=== PATIENT | female | born 1970 | race Caucasian/White ===

== ENCOUNTER 2016-03-08 14:28 | Outpatient (RCR) | payer MEDICARE, MEDICAID ==
[~2016-03-08 14:28] MED LIST: /ESOM40CA OR; /TIOT18INH INH; ALEVE D PO; ALLE25CA OR; CETI10TA OR; CLON0.5T OR; COLA100C2 OR; HYDR25TA8 OR; LEGATRIN PM; LEGATRIN PM PO; Legatrin; Norco PO; Prestiq PO; TRAZ100T OR; VENTAER IN; XANA1TAB2 OR
== END 2016-03-13 ==
LOC: M PT 14:28
PROVIDERS: ATTEND Physician Assistant
DX: Z51.89 Encounter for other specified aftercare (principal); Z98.890 Other specified postprocedural states
CPT/HCPCS: 97110; 97140; G8984; G8985

== ENCOUNTER 2016-04-04 14:30 | Outpatient (RCR) | payer MEDICARE, MEDICAID | END 2016-04-10 | LOC: M PT 14:30 | PROVIDERS: ATTEND Physician Assistant | DX: Z51.89 Encounter for other specified aftercare (principal); M75.00 Adhesive capsulitis of unspecified shoulder ==

== ENCOUNTER → 2016-06-19 | Outpatient (CLI) | payer MEDICARE, MEDICAID ==
[~2016-06-19] MED LIST changes: +E-Z-GAS II EFFERVESCENT PACKET (SODIUM BICARB./CITRIC ACID/SIMETHICONE) As Ordered ONE; +E-Z-HD 98% w/w 340GM SUSP BTL As Ordered ONE; +E-Z-PAQUE 96% w/w SUSP 176GM BTL As Ordered ONE
--- NOTE | 2016-06-20 06:20 | REP ---
UPPER GI, AIR CONTRAST: The procedure was performed under the direct supervision of Dr. Avilez. The images were reviewed with Dr. Avilez. The head charger film shows no organomegaly or pathological masses. The intestinal gas pattern is nonspecific. Liquid barium and gas producing granules were given in the erect position as well as liquid barium in the prone oblique position in order to perform a double contrast upper GI examination. The oral and pharyngeal stages of deglutition are unremarkable. Esophageal transport is prompt and efficient and there is no esophagitis, stricture, mucosal ring or hiatal hernia. Gastroesophageal reflux is not demonstrated on this examination. The stomach joseph are normally outlined. The rugal folds are smooth and regular. There is no gastritis, neoplasm or ulcer disease. The duodenal joseph are normally outlined. The mucosal folds are smooth and regular. There is no duodenitis, pancreatitis, peptic ulcer disease or neoplasm. The visualized portion of the proximal small bowel appears normal in course and caliber. There is a small duodenal diverticulum seen off the first portion of the duodenum. IMPRESSION: There is a small diverticulum seen off the first portion of the duodenum. Otherwise unremarkable double contrast upper GI examination. 1 minute and 57 seconds of fluoroscopy time was utilized for this procedure. Reviewed by SRIDHAR Enciso 06/20/2016 03:39 PEdited and Signed by Wilson Avilez MD 06/20/2016 04:50 P
== END ==
LOC: M RAD 08:25
PROVIDERS: ATTEND Family Medicine
DX: R10.9 Unspecified abdominal pain (principal)

== ENCOUNTER 2016-09-17 13:53 | Outpatient (CLI) | payer MEDICARE, MEDICAID ==
[~2016-09-17] VITALS: Ht 175.3 cm; Wt 81.6 kg
[~2016-09-17 13:53] MED LIST changes: +ALBU17IN INH; +ALPR2TAB3 PO; +CITA20TA4 PO; -E-Z-GAS II EFFERVESCENT PACKET (SODIUM BICARB./CITRIC ACID/SIMETHICONE) As Ordered ONE; -E-Z-HD 98% w/w 340GM SUSP BTL As Ordered ONE; -E-Z-PAQUE 96% w/w SUSP 176GM BTL As Ordered ONE; +FENT12PA TOP; +LIDOCAINE 2% INJ 100 MG/5 ML SDV (FOR ANES.) As Ordered ONE; +NS 1,000 ML IV ONE; +OMEP40CA2 PO; +PROPOFOL 200 MG/20 ML VIAL As Ordered ONE
[2016-09-17] MEDS ORDERED: TOPA1TAB PO (14:20)
--- NOTE | 2016-09-17 14:44 | ROOR ---
Patient Name: Ava Mazariegos Procedure Date: 09/17/2016 2:25 PM Date of : 1970 Age: 45 Room: [facility] Gender: Female Note Status: Finalized Procedure: Upper Endoscopy + Biopsies Indications: Epigastric abdominal pain, Heartburn Providers: Jayce Pritchard MD Referring MD: MANISH KIRKALND MD Requesting Provider: Medicines: Monitored Anesthesia Care Complications: No immediate complications. Procedure: Pre-Anesthesia Assessment: - The heart rate, respiratory rate, oxygen saturations, blood pressure, adequacy of pulmonary ventilation, and response to care were monitored throughout the procedure. The Endoscope was introduced through the mouth, and advanced to the second part of duodenum. The upper GI endoscopy was accomplished without difficulty. The patient tolerated the procedure well. Findings: The Z-line was regular and was found 40 cm from the incisors. Localized mild inflammation characterized by congestion (edema) and erythema was found in the gastric fundus. Biopsies were taken with a cold forceps for Helicobacter pylori testing. The exam of the duodenum was otherwise normal. Impression: - Z-line regular, 40 cm from the incisors. - Chronic gastritis. Biopsied. - The examination was otherwise normal. Recommendation: - Patient has a contact number available for emergencies. The signs and symptoms of potential delayed complications were discussed with the patient. Return to normal activities tomorrow. Written discharge instructions were provided to the patient. - High fiber diet. - Discharge patient to home. - Continue present medications. - Await pathology results. - Telephone GI clinic for pathology results in 1 week. - Return to referring physician. - The findings and recommendations were discussed with the patient's family. Jayce Pritchard MD Jayce Pritchard MD 09/17/2016 2:44:22 PM This report has been signed electronically. Number of Addenda: 0 Note Initiated On: 09/17/2016 2:25 PM Estimated Blood Loss: Estimated blood loss: none.
[2016-09-17 15:00] VITALS: BP 102/64
== END 2016-09-17 15:11 | disposition home or self-care (01) ==
LOC: M OPP 13:53
PROVIDERS: ATTEND Internal Medicine Gastroenterology
DX: K21.9 Gastro-esophageal reflux disease without esophagitis (principal); K29.50 Unspecified chronic gastritis without bleeding; F41.9 Anxiety disorder, unspecified; F33.9 Major depressive disorder, recurrent, unspecified; J45.909 Unspecified asthma, uncomplicated; F17.210 Nicotine dependence, cigarettes, uncomplicated; Z79.899 Other long term (current) drug therapy; Z88.1 Allergy status to other antibiotic agents; Z88.8 Allergy status to other drugs, medicaments and biological substances

== ENCOUNTER → 2016-11-27 | Outpatient (CLI) | payer MEDICARE, MEDICAID ==
[~2016-11-27] MED LIST changes: -LIDOCAINE 2% INJ 100 MG/5 ML SDV (FOR ANES.) As Ordered ONE; -NS 1,000 ML IV ONE; -PROPOFOL 200 MG/20 ML VIAL As Ordered ONE; +TOPA1TAB PO
--- NOTE | 2016-11-27 10:14 | REP ---
Chest two views HISTORY: Preop Comparison: 08/15/2010 The lungs are clear. The heart is normal in size. The pulmonary vasculature is normal in appearance. The bony structure is intact. IMPRESSION: No acute disease. Signed by Jaylan Wu MD 11/27/2016 10:06 A
[2016-11-27 11:20] LABS: INR 0.9
[2016-11-27 11:31] LABS: CALCIUM OXALATE CRYSTALS SMALL
[2016-11-27 11:47] LABS: ALBUMIN 3.5 GM/DL (3.2-5.2); ALBUMIN/GLOBULIN RATIO 0.85 (1.00-1.93); ALKALINE PHOSPHATASE 120 U/L (45-117); ALT/SGPT 33 U/L (12-78); ANION GAP 7 MEQ/L (8-16); AST/SGOT 19 U/L (15-37); BILIRUBIN,TOTAL 0.3 MG/DL (0.2-1.0); BLOOD UREA NITROGEN 14 MG/DL (7-18); CALCIUM LEVEL 8.3 MG/DL (8.5-10.1); CARBON DIOXIDE LEVEL 25 MEQ/L (21-32); CHLORIDE LEVEL 112 MEQ/L (98-107); CHOLESTEROL LEVEL 177 MG/DL (<200); CREATININE FOR GFR 0.63 MG/DL (0.55-1.02); GLOMERULAR FILTRATION RATE > 60.0 (>58); GLUCOSE, FASTING 93 MG/DL (70-105); POTASSIUM SERUM 4.1 MEQ/L (3.5-5.1); SODIUM LEVEL 144 MEQ/L (136-145); TOTAL PROTEIN 7.6 GM/DL (6.4-8.2); TRIGLYCERIDES LEVEL 281 MG/DL (<150)
--- NOTE | 2016-11-28 16:09 | ECGEPIP ---
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 No prior ECG available for comparison at the time of interpretation. Electronically Signed On 11-28-2016 16:08:58 EDT by Carl Caban
== END ==
LOC: M LAB 09:19
PROVIDERS: ATTEND Family Medicine
DX: Z01.818 Encounter for other preprocedural examination (principal); J44.9 Chronic obstructive pulmonary disease, unspecified; R79.1 Abnormal coagulation profile; E78.5 Hyperlipidemia, unspecified

== ENCOUNTER 2017-07-16 14:18 | Emergency (ER) | payer MEDICARE, MEDICAID | END 2017-07-16 16:59 | disposition left against medical advice (07) | LOC: M ED 16:59 | DX: Z53.21 Procedure and treatment not carried out due to patient leaving prior to being seen by health care provider (principal) | CPT/HCPCS: 99283 ==

== ENCOUNTER → 2017-11-22 | Outpatient (CLI) | payer MEDICARE, MEDICAID | LOC: M RAD 15:09 | DX: M53.3 Sacrococcygeal disorders, not elsewhere classified (principal); M47.816 Spondylosis without myelopathy or radiculopathy, lumbar region; M51.37 Other intervertebral disc degeneration, lumbosacral region; M51.27 Other intervertebral disc displacement, lumbosacral region; M70.60 Trochanteric bursitis, unspecified hip; M46.1 Sacroiliitis, not elsewhere classified; M79.7 Fibromyalgia; M54.16 Radiculopathy, lumbar region; M96.1 Postlaminectomy syndrome, not elsewhere classified | CPT/HCPCS: 72148 ==

== ENCOUNTER → 2018-01-22 | Outpatient (CLI) | payer MEDICARE, MEDICAID | LOC: M RAD 14:19 | DX: R06.00 Dyspnea, unspecified (principal) | CPT/HCPCS: 71046 ==

== ENCOUNTER 2018-06-16 17:54 | Observation (INO) | payer MEDICARE, MEDICAID ==
[~2018-06-16] VITALS: Ht 175.3 cm; Wt 88.2 kg
[~2018-06-16 17:54] MED LIST changes: -/ESOM40CA OR; -/TIOT18INH INH; -CITA20TA4 PO; +CITA20TA6 PO; +FENT12DI12 TOP; -FENT12PA TOP; +NEXI1CAP3 OR; +SPIR1CAP INH
[2018-06-16] MEDS ORDERED: TIZA4TAB4 PO (18:29)
[2018-06-16] MEDS ORDERED: ALBUTEROL SULFATE 2.5 MG/0.5 ML INH NEB SOLN INH ONE (18:30)
[2018-06-16] MEDS ORDERED: IPRATROPIUM 0.5MG/ALBUTEROL 2.5MG INH SOL UD 3ML (DUONEB)(J7620) NEB ONE (18:30)
[2018-06-16] MEDS ORDERED: ACETAMINOPHEN TAB 650MG DOSE (2X325MG) PO ONE (18:30)
[2018-06-16] MEDS ORDERED: dexameTHASONE 20 MG/5 ML VIAL (J1100) IV ONE (18:30)
[2018-06-16 18:37] LABS: VENOUS BASE EXCESS 0.2 (-2.0-2.0); VENOUS HCO3 21.8 MEQ/L (23.0-27.0); VENOUS O2 SATURATION 96.9 % (60.0-80.0); VENOUS PARTIAL PRESSURE CO2 28.7 mmHg (38.0-50.0); VENOUS PARTIAL PRESSURE O2 76.6 mmHg (30.0-50.0); VENOUS PH 7.498 UNITS (7.330-7.430); VENOUS STANDARD HCO3 24.7 MEQ/L; VENOUS TOTAL CO2 22.7 MEQ/L (24.0-28.0)
[2018-06-16 18:38] LABS: BASO % 0.4 % (0.0-1.0); EOS % 0.1 % (0.0-3.0); HEMOGLOBIN 17.5 g/dl (12.0-15.5); LYMPH # 1.6 10^3/uL (1.5-4.5); LYMPH % 18.8 % (24.0-44.0); MEAN CORPUSCULAR HEMOGLOBIN 31.5 pg (27.0-33.0); MEAN CORPUSCULAR VOLUME 90.1 fl (80.0-96.0); MONO # 0.4 10^3/uL (0.0-0.8); MONO % 4.4 % (0.0-5.0); NEUTROPHILS # 6.4 10^3/uL (1.8-7.7); NEUTROPHILS % 76.1 % (36.0-66.0); PLATELET COUNT, AUTOMATED 119 10^3/uL (150-450); RED BLOOD COUNT 5.55 10^6/uL (4.00-5.40); WHITE BLOOD COUNT 8.4 10^3/uL (4.0-10.0)
[2018-06-16 18:48] LABS: INR 1.03; PROTHROMBIN TIME 13.6 SECONDS (12.1-14.4)
[2018-06-16 19:07] LABS: INFLUENZA A AMPLIFICATION NEGATIVE (NEGATIVE); INFLUENZA B AMPLIFICATION NEGATIVE (NEGATIVE)
[2018-06-16 19:12] LABS: ALBUMIN 3.7 GM/DL (3.2-5.2); ALT/SGPT 54 U/L (12-78); BILIRUBIN,DIRECT 0.2 MG/DL (0.0-0.2); BILIRUBIN,TOTAL 0.7 MG/DL (0.2-1.0); BLOOD UREA NITROGEN 9 MG/DL (7-18); CALCIUM LEVEL 8.4 MG/DL (8.5-10.1); CARBON DIOXIDE LEVEL 22 MEQ/L (21-32); CHLORIDE LEVEL 108 MEQ/L (98-107); CK-MB VALUE MASS < 1.0 NG/ML (<3.6); CPK CREATINE PHOSPHOKINASE 32 U/L (26-192); CREATININE FOR GFR 0.61 MG/DL (0.55-1.30); GLOMERULAR FILTRATION RATE > 60.0 (>58); GLUCOSE, FASTING 102 MG/DL (70-100); MB/CK RELATIVE INDEX 3.12 (< OR =4); NT-PRO BNP 81 PG/ML (<125); POTASSIUM SERUM 3.2 MEQ/L (3.5-5.1); SODIUM LEVEL 141 MEQ/L (136-145); TOTAL PROTEIN 7.7 GM/DL (6.4-8.2); TROPONIN I < 0.02 NG/ML (< 0.10)
--- NOTE | 2018-06-16 19:19 | REP ---
REASON: Dyspnea. COMPARISON: Two view exam of 01/22/2018. FINDINGS: The technique utilized in obtaining the radiograph has magnified the cardiac silhouette and accentuated the interstitial markings. The superior mediastinal structures are midline. The cardiac silhouette is unremarkable in size, shape, and position. The diaphragmatic surfaces of the lungs are regular, and the costophrenic angles are clear. The pulmonary mock are clear. The imaged osseous structures are intact. IMPRESSION: There is no acute cardiopulmonary disease. Electronically Signed by Parminder Canchola DO 06/16/2018 07:23 P
[2018-06-16] MEDS ORDERED: POTASSIUM CHLORIDE 10 MEQ SR TABLET PO ONE ×2 (20:00→21:00)
[2018-06-16] MEDS ORDERED: VENTAER INH (20:12)
[2018-06-16] MEDS ORDERED: CELE40TA PO (20:12)
[2018-06-16] MEDS ORDERED: DURA50DI2 TD (20:12)
[2018-06-16] MEDS ORDERED: TOPI100T9 PO (20:12)
[2018-06-16] MEDS ORDERED: HYDR-4517 PO (20:14)
[2018-06-16] MEDS ORDERED: ROPI1TAB PO (20:14)
[2018-06-16] MEDS ORDERED: MELA5CAP2 PO (20:14)
[2018-06-16] MEDS ORDERED: FENTANYL REMOVAL DOCUMENTATION MISC XX SCH (20:45)
[2018-06-16] MEDS ORDERED: AZITHROMYCIN 250 MG TAB PO ONE (20:45)
--- NOTE | 2018-06-16 21:09 | HPEPDOC ---
General Date of Admission Attending Physician: ADAM KIRK MD Chief Complaint The patient is a 47-year-old female admitted with a reason for visit of Diff Breathing. Source: Patient Exam Limitations: Clinical conditions Timing/Duration: Week(s) (3) Severity: Severe Associated Symptoms: Chest Pain, Cough, Fever, Chills, Loss of appetite, Nausea, Shortness of breath, Syncope, Weakness History of Present Illness Patient is a 47-year-old female, past medical history significant for COPD, heavy nicotine dependence, presenting to the emergency room after a syncopal episode which was unwitnessed, with complaints of chest pain and shortness of breath. Patient reports she has had a cough with shortness of breath and weakness for about 3 weeks now. She also had associated chest pain with symptoms. She decided to present to the emergency room today after syncopal episode. Patient states episode was unwitnessed. On recovery, she drove herself to the emergency room. On presentation, patient had a fever of 101.2, chest x-ray was negative for acute cardiopulmonary process. Tests for influenza was negative, cardiac biomarkers also were negative. She was treated with a dose of dexamethasone and placed on supplemental oxygen. On assessment, she still had marked discomfort with coughing, chest pain, shortness of breath. Home Medications Scheduled Alprazolam (Alprazolam) 2 Mg Tab, 2 MG PO QID, (Reported) Citalopram Hydrobromide (Celexa) 40 Mg Tablet, 20 MG PO DAILY, (Reported) Fentanyl (Duragesic) 50 Mcg Patch.td72, 50 MCG TD Q72H, (Reported) USUALLY APPLIES TO BACK/SHOULDERS Ropinirole HCl (Ropinirole HCl) 1 Mg Tablet, 1 MG PO QHS, (Reported) Topiramate (Topiramate) 100 Mg Tablet, 100 MG PO BID, (Reported) Scheduled PRN Albuterol Sulfate (Ventolin Hfa) 18 Gm Hfa.aer.ad, 2 PUFF INH Q4H PRN for SHORTNESS OF BREATH, (Reported) Hydrocodone/Acetaminophen (Hydrocodone-Acetamin 10-325 mg) 1 Each Tablet, 1 TAB PO BID PRN for PAIN, (Reported) FILLED AT PHARMACY. PATIENT HAS NOT STARTED YET. Melatonin (Melatonin) 5 Mg Capsule, 5 MG PO QHS PRN for SLEEP, (Reported) Tizanidine HCl (Tizanidine HCl) 4 Mg Tablet, 4 MG PO Q6H PRN for PAIN, (Reported) Allergies Coded Allergies: tapentadol (Verified Allergy, Severe, SHORTNESS OF BREATH, 06/16/18) Corticosteroids (Glucocorticoids) (Verified Adverse Reaction, Intermediate, IMPAIRED IMMUNE SYSTEM, 06/16/18) erythromycin base (Verified Adverse Reaction, Intermediate, NAUSEA, 06/16/18) Past Medical History Medical History COPD Asthma Attending dependent Surgical History Back surgery Rotator cuff repair Tubal ligation Family History Father: Lung cancer, diabetes mellitus, myocardial infarction at 50 Sister: Lung cancer Social History Smokes a pack of cigarettes per day, denies alcohol and polysubstance abuse A-FIB/CHADSVASC A-FIB History Current/History of A-Fib/PAF?: No Current Oral Anticoagulant The: No Review of Systems Other systems A limited review of systems was completed due to patient's clinical discomfort, negative except as detailed above. Physical Examination Other physical findings GENERAL: in mild distress SKIN : Warm, dry intact HEENT: Atraumatic, normocephalic, PERRL, moist mucous membrane CV: Regular rate and rhythm, tachycardic, S1S2, no JVD, no edema, distal pulses + and palpable RESP: coarse inspiratory wheezes in all lung mock, cough, , no accessory muscle use noted ABDOMEN: BS+ non distended non tender MS: no joint deformities NEURO: Alert and oriented x 3, CN2-12 grossly intact PSYCH: no anxiety or agitation, appropriate mood and affect. Vital Signs Vital Signs Date Time Temp Pulse Resp B/P (MAP) Pulse Ox O2 Delivery O2 Flow Rate FiO2 06/16/18 20:30 97 24 127/73 (91) 95 Nasal Cannula 2.0 06/16/18 20:13 100.5 Laboratory Data Labs 24H Laboratory Tests 2 06/16/18 18:17: Lactic Acid Level 1.2 06/16/18 18:18: Immature Granulocyte % (Auto) 0.2, White Blood Count 8.4, Red Blood Count 5.55H, Hemoglobin 17.5H, Hematocrit 50.0H, Mean Corpuscular Volume 90.1, Mean Corpuscular Hemoglobin 31.5, Mean Corpuscular Hemoglobin Concent 35.0, Red Cell Distribution Width 12.5, Platelet Count 119L, Neutrophils (%) (Auto) 76.1H, Lymphocytes (%) (Auto) 18.8L, Monocytes (%) (Auto) 4.4, Eosinophils (%) (Auto) 0.1, Basophils (%) (Auto) 0.4, Neutrophils # (Auto) 6.4, Lymphocytes # (Auto) 1.6, Monocytes # (Auto) 0.4, Eosinophils # (Auto) 0.0, Basophils # (Auto) 0.0, Nucleated Red Blood Cells % (auto) 0.0, Prothrombin Time 13.6, Prothromb Time International Ratio 1.03, Blood Gas Bicarbonate Standard 24.7, Venous Blood pH 7.498H, Venous Blood Partial Pressure CO2 28.7L, Venous Blood Partial Pressure O2 76.6H, Venous Blood Total Carbon Dioxide 22.7L, Venous Blood HCO3 21.8L, Venous Blood Oxygen Saturation 96.9H, Venous Blood Base Excess 0.2, Anion Gap 11, Glomerular Filtration Rate > 60.0, Calcium Level 8.4L, Aspartate Amino Transf (AST/SGOT) 23, Alanine Aminotransferase (ALT/SGPT) 54, Alkaline Phosphatase 103, Total Bilirubin 0.7, Direct Bilirubin 0.2, Total Creatine Kinase 32, Creatine Kinase MB < 1.0, Creatine Kinase MB Relative Index 3.12, Troponin I < 0.02, JP-Obt-T-Type Natriuretic Peptide 81, Total Protein 7.7, Albumin 3.7, Albumin/Globulin Ratio 0.93L, Thyroid Stimulating Hormone (TSH) 1.210, Influenza Type A (RT-PCR) NEGATIVE, Influenza Type B (RT-PCR) NEGATIVE CBC/BMP Laboratory Tests 06/16/18 18:18 Red Blood Count 5.55 H, Mean Corpuscular Volume 90.1, Mean Corpuscular Hemoglobin 31.5, Mean Corpuscular Hemoglobin Concent 35.0, Red Cell Distribution Width 12.5, Neutrophils (%) (Auto) 76.1 H, Lymphocytes (%) (Auto) 18.8 L, Monocytes (%) (Auto) 4.4, Eosinophils (%) (Auto) 0.1, Basophils (%) (Auto) 0.4, Neutrophils # (Auto) 6.4, Lymphocytes # (Auto) 1.6, Monocytes # (Auto) 0.4, Eosinophils # (Auto) 0.0, Basophils # (Auto) 0.0 Microbiology Microbiology 06/16/18 Blood Culture, Received Pending 06/16/18 Blood Culture, Received Pending Assessment/Plan Acute exacerbation COPD -Presenting with fever, shortness of breath, syncope -Start patient on antibiotic therapy with azithromycin -.Scheduled routine bronchodilator therapy -Patient was given a dose of dexamethasone in the emergency room -She had no adverse effects -Continue steroid therapy with supplemental oxygen to keep saturation greater than 90% -Antipyretics as needed and for temp greater than 100.4 Acute bronchitis -Antitussives as needed -Treatment of underlying infectious process -Respiratory support as needed with monitoring of oxygen to keep greater than 90% Chest Pain -Acute myonecrosis has been ruled out -Patient, however, has strong family history with myocardial infarction in in father at the age of 50 -She also has personal risk factors including heavy nicotine dependent -Nuclear stress test when underlying acute respiratory issues are resolved Syncope -Patient is ruled out for acute myonecrosis with negative cardiac biomarkers -2-D echocardiogram to evaluate ejection fraction, rule out regional wall motion abnormalities -Telemetry monitored bed to exclude any underlying arrhythmia Nicotine dependent -Patient has been counseled about quitting -Continue other therapeutic changes Hypokalemia -Replete and monitor to keep greater than 4 DVT prophylaxis -Proton pump inhibitor Plan / VTE VTE Prophylaxis Ordered?: Yes DARION MCCRARY June 16, 2018 21:09
[2018-06-16] MEDS: rOPINIRole 1MG TAB PO SCH (22:08)
--- NOTE | 2018-06-16 22:17 | ECGEPIP ---
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
[2018-06-16 22:40] VITALS: BP 120/66
[2018-06-16] MEDS: TOPIRAMATE (TopAMAX) 100 MG TAB PO SCH (23:22)
[2018-06-16] MEDS: ENOXAPARIN 40 MG/0.4 ML SYRINGE (J1650) SC SCH (23:23)
[2018-06-16] MEDS: ALPRAZolam 0.5 MG TAB PO SCH (23:23)
[2018-06-16] MEDS: methylPREDNISolone INJ 125 MG/2 ML VIAL (J2930) IV SCH (23:48)
[2018-06-16] MEDS: IPRATROPIUM 0.5MG/ALBUTEROL 2.5MG INH SOL UD 3ML (DUONEB)(J7620) NEB SCH (23:48)
[2018-06-17] MEDS: methylPREDNISolone INJ 125 MG/2 ML VIAL (J2930) IV SCH ×3 (05:55→17:38)
[2018-06-17 06:00] VITALS: BP 114/67
[2018-06-17] MEDS ORDERED: fentaNYL 50 MCG/HR PATCH TD SCH (06:00)
[2018-06-17] MEDS: IPRATROPIUM 0.5MG/ALBUTEROL 2.5MG INH SOL UD 3ML (DUONEB)(J7620) NEB SCH ×4 (07:33→19:53)
[2018-06-17] MEDS: TOPIRAMATE (TopAMAX) 100 MG TAB PO SCH ×2 (08:17→21:56)
[2018-06-17] MEDS: ALPRAZolam 0.5 MG TAB PO SCH ×4 (08:17→21:56)
[2018-06-17] MEDS: PANTOPRAZOLE 40MG TAB (PROTONIX) PO SCH (08:17)
[2018-06-17] MEDS: CitaloPRAM (CeleXA) 20 MG TAB PO SCH (08:17)
[2018-06-17] MEDS: ACETAMINOPHEN TAB 650MG DOSE (2X325MG) PO PRN (08:18)
[2018-06-17 09:08] LABS: HEMATOCRIT 49.3 % (36.0-47.0); MEAN CORPUSCULAR HEMOGLOBIN 31.6 pg (27.0-33.0); MEAN CORPUSCULAR HGB CONC 34.5 g/dl (32.0-36.5); MEAN CORPUSCULAR VOLUME 91.6 fl (80.0-96.0); PLATELET COUNT, AUTOMATED 126 10^3/uL (150-450); RED BLOOD COUNT 5.38 10^6/uL (4.00-5.40); WHITE BLOOD COUNT 5.1 10^3/uL (4.0-10.0)
[2018-06-17 09:34] LABS: BLOOD UREA NITROGEN 14 MG/DL (7-18); CALCIUM LEVEL 9.1 MG/DL (8.5-10.1); CARBON DIOXIDE LEVEL 23 MEQ/L (21-32); CHLORIDE LEVEL 109 MEQ/L (98-107); CREATININE FOR GFR 0.68 MG/DL (0.55-1.30); GLOMERULAR FILTRATION RATE > 60.0 (>58); GLUCOSE, FASTING 208 MG/DL (70-100); POTASSIUM SERUM 3.6 MEQ/L (3.5-5.1); SODIUM LEVEL 139 MEQ/L (136-145)
--- NOTE | 2018-06-17 13:40 | IPNPDOC ---
Subjective Date Seen The patient was seen on 06/17/18. Subjective Chief Complaint/HPI still has SOB but slightly getting better General: Denies: ROS Unobtainable, Chills, Night Sweats, Fatigue, Malaise, Normal Appetite, Other Symptoms Constitutional: Denies: Chills, Fever, Malaise, Night Sweats, Weakness, Fatigue, Weight Loss, Lethargy, Other Eyes: Denies: Pain, Vision change, Conjunctivae inflammation, Eyelid inflammation, Redness, Other ENT: Denies: Head Aches, Ear Pain, Dysphagia, Sinus Congestion, Post Nasal Drip, Sore Throat, Epistaxis, Other Symptoms Skin: Denies: Rash, Lesions, Jaundice, Bruising, Itching, Dry, Breakdown, Nail Changes, Other Pulmonary: Reports: Dyspnea, Cough Cardiovascular: Denies: Chest Pain, Palpitations, Orthopnea, Paroxysmal Noc. Dyspnea, Edema, Lt Headedness, Other Symptoms Gastrointestinal: Denies: Nausea, Vomiting, Abdominal Pain, Diarrhea, Constipation, Melena, Hematochezia, Other Symptoms Genitourinary: Denies: Dysuria, Frequency, Incontinence, Hematuria, Retention, Other Symptoms Hematologic: Denies: Bruising, Bleeding Excessively, Petecchia, Purpura, Enlarged Lymph Nodes, Other Hematologic Endocrine: Denies: Polydipsia, Polyphagia, Polyuria, Heat Intolerance, Cold Intolerance, Other Endocrine Sx Musculoskeletal: Denies: Neck Pain, Back Pain, Shoulder Pain, Arm Pain, Hand Pain, Leg Pain, Foot Pain, Joint Pain, Muscle Pain, Spasms, Other Symptoms Neurological: Denies: Weakness, Numbness, Incoordination, Change in speech, Confusion, Seizures, Other Symptoms Psych: Denies: Mood Normal, Anxiety, Depression, Memory Issues, Thoughts of Self Harm, Anger, Thoughts of Harming Other, Other Psych Objective Physical Examination General Exam: Negative: Alert, Cooperative, No Acute Distress, Mild Distress, Moderate Distress, Severe Distress, Other Eye Exam: Negative: PERRLA, Conjunctiva & lids normal, EOMI, Sclera icteric, Ptosis, Other Eye Symptoms ENT Exam: Negative: Atraumatic, Mucous membr. moist/pink, Pharynx Normal, Tongue Midline, Pharyngeal Edema, Nares Patent, Tympanic Membranes Normal, Ext Auditory Canal Nml, Pinna Normal, Other ENT Neck Exam: Negative: Supple, JVD, thyromegaly, +2 carotid pulse wo bruit, Lymphadenopathy, Other Chest Exam: Positive: Wheezing, Diminished Heart Exam: Negative: Rate Normal, Tachycardic, Bradycardic, Regular Rhythm, Irregular Rhythm, Normal S1, Normal S2, Gallops, Murmurs, Rubs, Other Telemetry: Negative: No significant arrhythmia, Sinus, Atrial fibrillation, Tachycardia, Bradycardia, AV Block, Pause, SV Tach, PVCs, PACs, Asystole, Other Telemetry: Abdomen Exam: Negative: Normal bowel sounds, BS Hyperactive, BS Hypoactive, Soft, Tenderness, Hepatospenomegaly, Mass, Hernia, Other Female Exam: Negative: Nl Ext Genitalia, Normal Cervical Exam, Lesions, Discharge, Odor, Tenderness, Nl Rectal Sphincter Tone Extremity Exam: Negative: Clubbing, Cyanosis, Edema, Normal pulses, Tenderness, Swelling, Other Skin Exam: Negative: Nl turgor and temperature, Rash, Breakdown, Lesion, Pruritus, Other skin issue Neuro Exam: Negative: Normal Gait, Normal Speech, Strength at 5/5 X4 ext, Normal Tone, Sensation Intact, Cranial Nerves 3-12 NL, Reflexes 2+, Other Psych Exam: Negative: Mental status NL, Mood NL, Anxiety, Memory Intact, Oriented x 3, Other A-FIB/CHADSVASC A-FIB History Current/History of A-Fib/PAF?: No Assessment /Plan Problems (1) COPD (chronic obstructive pulmonary disease) with acute bronchitis Status: Acute Response to Treatment: Worse Problem Specific Plan: Monitor Clinically Problem Text: Patient is still hesitant to increase exacerbation of COPD Will change IV to by mouth prednisone to IV Solu-Medrol for better control Continue nebulizer treatment as ordered Extensive counseling was done as patient possibly has CHRISTIAN and needs to follow up with her primary care physician for sleep apnea test Will give a trial of CPAP of 12. Tonight Continue all present meds (2) Obesity Status: Chronic Response to Treatment: Stable Problem Text: Dietary and exercise counseling done Salt other comorbidities associated with with the extreme obesity were explained to her and she understands very well (3) CHRISTIAN (obstructive sleep apnea) Status: Chronic Response to Treatment: Stable Discussed With: Patient Problem Text: Will give a trial of CPAP, but ultimately she needs to see her primary care physician and get the sleep apnea testing done before she gets her CPAP from her insurance company Plan/VTE VTE Prophylaxis Ordered?: Yes VS, I&O[facility] Vital Signs/I&O Vital Signs Date Time Temp Pulse Resp B/P (MAP) Pulse Ox O2 Delivery O2 Flow Rate FiO2 06/17/18 09:00 2.0 06/17/18 06:38 20 94 06/17/18 06:00 97.0 71 114/67 (83) 06/16/18 22:25 Room Air I&O- Last 24 Hours up to 6 AM 06/17/18 06:00 Intake Total 240 ml Output Total 200 ml Balance 40 ml Laboratory Data 24H LABS Laboratory Tests 2 06/16/18 18:17: Lactic Acid Level 1.2 06/16/18 18:18: Immature Granulocyte % (Auto) 0.2, White Blood Count 8.4, Red Blood Count 5.55H, Hemoglobin 17.5H, Hematocrit 50.0H, Mean Corpuscular Volume 90.1, Mean Corpuscular Hemoglobin 31.5, Mean Corpuscular Hemoglobin Concent 35.0, Red Cell Distribution Width 12.5, Platelet Count 119L, Neutrophils (%) (Auto) 76.1H, Lymphocytes (%) (Auto) 18.8L, Monocytes (%) (Auto) 4.4, Eosinophils (%) (Auto) 0.1, Basophils (%) (Auto) 0.4, Neutrophils # (Auto) 6.4, Lymphocytes # (Auto) 1.6, Monocytes # (Auto) 0.4, Eosinophils # (Auto) 0.0, Basophils # (Auto) 0.0, Nucleated Red Blood Cells % (auto) 0.0, Prothrombin Time 13.6, Prothromb Time International Ratio 1.03, Blood Gas Bicarbonate Standard 24.7, Venous Blood pH 7.498H, Venous Blood Partial Pressure CO2 28.7L, Venous Blood Partial Pressure O2 76.6H, Venous Blood Total Carbon Dioxide 22.7L, Venous Blood HCO3 21.8L, Venous Blood Oxygen Saturation 96.9H, Venous Blood Base Excess 0.2, Anion Gap 11, Glomerular Filtration Rate > 60.0, Calcium Level 8.4L, Aspartate Amino Transf (AST/SGOT) 23, Alanine Aminotransferase (ALT/SGPT) 54, Alkaline Phosphatase 103, Total Bilirubin 0.7, Direct Bilirubin 0.2, Total Creatine Kinase 32, Creatine Kinase MB < 1.0, Creatine Kinase MB Relative Index 3.12, Troponin I < 0.02, HS-Zfd-A-Type Natriuretic Peptide 81, Total Protein 7.7, Albumin 3.7, Albumin/Globulin Ratio 0.93L, Thyroid Stimulating Hormone (TSH) 1.210, Influenza Type A (RT-PCR) NEGATIVE, Influenza Type B (RT-PCR) NEGATIVE 06/17/18 08:34: Nucleated Red Blood Cells % (auto) 0.0, Anion Gap 7L, Glomerular Filtration Rate > 60.0, Calcium Level 9.1, Blood Urea Nitrogen 14#, Creatinine 0.68, Sodium Level 139, Potassium Level 3.6, Chloride Level 109H, Carbon Dioxide Level 23 CBC/BMP Laboratory Tests 06/16/18 18:18 Red Blood Count 5.55 H, Mean Corpuscular Volume 90.1, Mean Corpuscular Hemoglobin 31.5, Mean Corpuscular Hemoglobin Concent 35.0, Red Cell Distribution Width 12.5, Neutrophils (%) (Auto) 76.1 H, Lymphocytes (%) (Auto) 18.8 L, Monocytes (%) (Auto) 4.4, Eosinophils (%) (Auto) 0.1, Basophils (%) (Auto) 0.4, Neutrophils # (Auto) 6.4, Lymphocytes # (Auto) 1.6, Monocytes # (Auto) 0.4, Eosinophils # (Auto) 0.0, Basophils # (Auto) 0.0 06/17/18 08:34 Red Blood Count 5.38, Mean Corpuscular Volume 91.6, Mean Corpuscular Hemoglobin 31.6, Mean Corpuscular Hemoglobin Concent 34.5, Red Cell Distribution Width 12.6, Calcium Level 9.1 Microbiology Microbiology 06/16/18 Blood Culture, Received Pending 06/16/18 Blood Culture, Received Pending JANA WAKEFIELD MD June 17, 2018 13:40
[2018-06-17 14:00] VITALS: BP 120/70
[2018-06-17] MEDS ORDERED: AZITHROMYCIN 250 MG TAB PO ONE (20:45)
[2018-06-17] MEDS: rOPINIRole 1MG TAB PO SCH (21:56)
[2018-06-17 22:00] VITALS: BP 132/79
[2018-06-17] MEDS ORDERED: guaiFENesin SYRUP 200 MG/10 ML UDC PO ONE (23:00)
[2018-06-17] MEDS ORDERED: METAMUCIL (PSYLLIUM) PACKET PO PRN (23:30)
[2018-06-18] MEDS: ENOXAPARIN 40 MG/0.4 ML SYRINGE (J1650) SC SCH ×2 (00:10→22:18)
[2018-06-18] MEDS: methylPREDNISolone INJ 125 MG/2 ML VIAL (J2930) IV SCH ×4 (00:10→17:13)
[2018-06-18] MEDS: MOM 30ML SUSPENSION UDC PO PRN (00:11)
[2018-06-18] MEDS: ACETAMINOPHEN TAB 650MG DOSE (2X325MG) PO PRN ×2 (00:11→22:19)
[2018-06-18 06:00] VITALS: BP 106/59
--- NOTE | 2018-06-18 07:51 | ECHO ---
DATE OF STUDY: 06/17/2018 REFERRING PROVIDER: ALVINA Beltran INDICATION: Syncope. HEIGHT: 178 cm. WEIGHT: 88 kg. DIMENSIONS: IVS: 0.9 LV: 4.6 LVPW: 1.1 LA: 3.2 Aorta: 2.8 IVC: 2.4 Mitral E wave velocity: 105 A wave: 108 E prime septal: 8.1 E prime lateral: 8.3 FINDINGS: The study is of good technical quality. The patient is in sinus rhythm. Left ventricle is normal size and normal systolic function, estimated left ventricular ejection fraction (LVEF) 65-70%. No segmental wall motion abnormalities are noted. Right ventricle also appears normal size and systolic function. Both atria appear normal. Aortic, mitral and tricuspid valves appear normal. Pulmonic valve was not well seen. No pericardial effusion is noted. Inferior vena cava is dilated and there is minimal appreciable collapse with respiration indicative of high central venous pressure. Aortic root is normal. Aortic arch and abdominal aorta also appear grossly normal even though visualization was somewhat limited. Doppler interrogation of aortic valve reveals no stenosis or insufficiency. There is trace mitral insufficiency. Tricuspid valve is functionally competent. Mitral inflow pattern and tissue Doppler imaging of mitral annulus reveal likely grade 1 diastolic dysfunction. CONCLUSIONS: 1. Study is of good technical quality. 2. Normal LV size and systolic function, grade 1 diastolic dysfunction. 3. No significant valvular disease. 4. Suggestive of high central venous pressure, but unable to determine pulmonary artery pressure. Right ventricle though does not appear dilated or hypokinetic. COMMENT: Subacute bacterial endocarditis (SBE) prophylaxis is not recommended. The study does not provide obvious explanation for syncopal event.
[2018-06-18] MEDS: IPRATROPIUM 0.5MG/ALBUTEROL 2.5MG INH SOL UD 3ML (DUONEB)(J7620) NEB SCH ×4 (08:00→19:47)
[2018-06-18] MEDS: PANTOPRAZOLE 40MG TAB (PROTONIX) PO SCH (09:00)
[2018-06-18] MEDS: CitaloPRAM (CeleXA) 20 MG TAB PO SCH (09:10)
[2018-06-18] MEDS: ALPRAZolam 0.5 MG TAB PO SCH ×4 (09:10→22:18)
[2018-06-18] MEDS: TOPIRAMATE (TopAMAX) 100 MG TAB PO SCH ×2 (09:10→22:17)
[2018-06-18 14:00] VITALS: BP 118/55
--- NOTE | 2018-06-18 14:34 | IPNPDOC ---
Subjective Date Seen The patient was seen on 06/18/18. Subjective Chief Complaint/HPI No new complaints at the present time General: Denies: ROS Unobtainable, Chills, Night Sweats, Fatigue, Malaise, Normal Appetite, Other Symptoms Constitutional: Denies: Chills, Fever, Malaise, Night Sweats, Weakness, Fatigue, Weight Loss, Lethargy, Other Eyes: Denies: Pain, Vision change, Conjunctivae inflammation, Eyelid inflammation, Redness, Other ENT: Denies: Head Aches, Ear Pain, Dysphagia, Sinus Congestion, Post Nasal Drip, Sore Throat, Epistaxis, Other Symptoms Skin: Denies: Rash, Lesions, Jaundice, Bruising, Itching, Dry, Breakdown, Nail Changes, Other Pulmonary: Denies: Dyspnea, Cough, Pleuritic Chest Pain, Other Symptoms Cardiovascular: Denies: Chest Pain, Palpitations, Orthopnea, Paroxysmal Noc. Dyspnea, Edema, Lt Headedness, Other Symptoms Gastrointestinal: Denies: Nausea, Vomiting, Abdominal Pain, Diarrhea, Constipation, Melena, Hematochezia, Other Symptoms Genitourinary: Denies: Dysuria, Frequency, Incontinence, Hematuria, Retention, Other Symptoms Hematologic: Denies: Bruising, Bleeding Excessively, Petecchia, Purpura, Enlarged Lymph Nodes, Other Hematologic Musculoskeletal: Denies: Neck Pain, Back Pain, Shoulder Pain, Arm Pain, Hand Pain, Leg Pain, Foot Pain, Joint Pain, Muscle Pain, Spasms, Other Symptoms Neurological: Denies: Weakness, Numbness, Incoordination, Change in speech, Confusion, Seizures, Other Symptoms Psych: Denies: Mood Normal, Anxiety, Depression, Memory Issues, Thoughts of Self Harm, Anger, Thoughts of Harming Other, Other Psych Objective Physical Examination General Exam: Negative: Alert, Cooperative, No Acute Distress, Mild Distress, Moderate Distress, Severe Distress, Other Eye Exam: Negative: PERRLA, Conjunctiva & lids normal, EOMI, Sclera icteric, Ptosis, Other Eye Symptoms ENT Exam: Negative: Atraumatic, Mucous membr. moist/pink, Pharynx Normal, Tongue Midline, Pharyngeal Edema, Nares Patent, Tympanic Membranes Normal, Ext Auditory Canal Nml, Pinna Normal, Other ENT Neck Exam: Negative: Supple, JVD, thyromegaly, +2 carotid pulse wo bruit, Lymphadenopathy, Other Chest Exam: Positive: Wheezing, Diminished Heart Exam: Negative: Rate Normal, Tachycardic, Bradycardic, Regular Rhythm, Irregular Rhythm, Normal S1, Normal S2, Gallops, Murmurs, Rubs, Other Telemetry: Negative: No significant arrhythmia, Sinus, Atrial fibrillation, Tachycardia, Bradycardia, AV Block, Pause, SV Tach, PVCs, PACs, Asystole, Other Telemetry: Abdomen Exam: Negative: Normal bowel sounds, BS Hyperactive, BS Hypoactive, Soft, Tenderness, Hepatospenomegaly, Mass, Hernia, Other Female Exam: Negative: Nl Ext Genitalia, Normal Cervical Exam, Lesions, Discharge, Odor, Tenderness, Nl Rectal Sphincter Tone Extremity Exam: Negative: Clubbing, Cyanosis, Edema, Normal pulses, Tenderness, Swelling, Other Skin Exam: Negative: Nl turgor and temperature, Rash, Breakdown, Lesion, Pruritus, Other skin issue Neuro Exam: Negative: Normal Gait, Normal Speech, Strength at 5/5 X4 ext, Normal Tone, Sensation Intact, Cranial Nerves 3-12 NL, Reflexes 2+, Other Psych Exam: Negative: Mental status NL, Mood NL, Anxiety, Memory Intact, Oriented x 3, Other A-FIB/CHADSVASC A-FIB History Current/History of A-Fib/PAF?: No Assessment /Plan Problems (1) COPD (chronic obstructive pulmonary disease) with acute bronchitis Status: Acute Response to Treatment: Worse Problem Specific Plan: Monitor Clinically Problem Text: Patient is still hesitant to increase exacerbation of COPD Will change IV to by mouth prednisone to IV Solu-Medrol for better control Continue nebulizer treatment as ordered Extensive counseling was done as patient possibly has CHRISTIAN and needs to follow up with her primary care physician for sleep apnea test Patient has responded very well to IV steroids and possibly will be converted to by mouth on discharge tomorrow Muna maintains oxygenation very well on low percentage of oxygen Patient was advised to seek pulmonary consultation in follow-up for sleep apnea studies as an outpatient (2) Obesity Status: Chronic Response to Treatment: Stable Problem Text: Dietary and exercise counseling done Salt other comorbidities associated with with the extreme obesity were explained to her and she understands very well (3) CHRISTIAN (obstructive sleep apnea) Status: Chronic Response to Treatment: Stable Discussed With: Patient Problem Text: Will give a trial of CPAP, but ultimately she needs to see her primary care physician and get the sleep apnea testing done before she gets her CPAP from her insurance company Plan/VTE VTE Prophylaxis Ordered?: Yes VS, I&O, 24H, Fishbone Vital Signs/I&O Vital Signs Date Time Temp Pulse Resp B/P (MAP) Pulse Ox O2 Delivery O2 Flow Rate FiO2 06/18/18 09:15 2.0 06/18/18 06:00 97.6 53 18 106/59 (75) 95 06/16/18 22:25 Room Air I&O- Last 24 Hours up to 6 AM 06/18/18 06:00 Intake Total 2320 ml Output Total 400 ml Balance 1920 ml Laboratory Data Microbiology Microbiology 06/16/18 Blood Culture - Preliminary, Resulted No growth after 24 hours . All specim... 06/16/18 Blood Culture - Preliminary, Resulted No growth after 24 hours . All specim... JANA WAKEFIELD MD June 18, 2018 14:34
[2018-06-18] MEDS: MIRALAX *UNIT DOSE* 17GM PACKET PO SCH (15:29)
[2018-06-18 22:00] VITALS: BP 132/69
[2018-06-18] MEDS: rOPINIRole 1MG TAB PO SCH (22:17)
[2018-06-19] MEDS ORDERED: BENZONATATE 100 MG CAP PO PRN
[2018-06-19] MEDS: MOM 30ML SUSPENSION UDC PO PRN (01:00)
[2018-06-19] MEDS: methylPREDNISolone INJ 125 MG/2 ML VIAL (J2930) IV SCH ×2 (01:00→07:07)
[2018-06-19 06:00] VITALS: BP 137/72
[2018-06-19 06:25] LABS: HEMATOCRIT 48.1 % (36.0-47.0); HEMOGLOBIN 16.2 g/dl (12.0-15.5); MEAN CORPUSCULAR HEMOGLOBIN 31.1 pg (27.0-33.0); MEAN CORPUSCULAR HGB CONC 33.7 g/dl (32.0-36.5); MEAN CORPUSCULAR VOLUME 92.3 fl (80.0-96.0); PLATELET COUNT, AUTOMATED 130 10^3/uL (150-450); RED BLOOD COUNT 5.21 10^6/uL (4.00-5.40); WHITE BLOOD COUNT 10.1 10^3/uL (4.0-10.0)
[2018-06-19] MEDS: ACETAMINOPHEN TAB 650MG DOSE (2X325MG) PO PRN (07:07)
[2018-06-19] MEDS: IPRATROPIUM 0.5MG/ALBUTEROL 2.5MG INH SOL UD 3ML (DUONEB)(J7620) NEB SCH ×2 (07:23→11:05)
[2018-06-19] MEDS: ALPRAZolam 0.5 MG TAB PO SCH (09:13)
[2018-06-19] MEDS: CitaloPRAM (CeleXA) 20 MG TAB PO SCH (09:13)
[2018-06-19] MEDS: TOPIRAMATE (TopAMAX) 100 MG TAB PO SCH (09:13)
[2018-06-19] MEDS: PANTOPRAZOLE 40MG TAB (PROTONIX) PO SCH (09:13)
[2018-06-19] MEDS: MIRALAX *UNIT DOSE* 17GM PACKET PO SCH (09:13)
[2018-06-19] MEDS ORDERED: PRED20TA PO (10:10)
--- NOTE | 2018-06-19 13:42 | DS.PDOC ---
Discharge Summary General Date of Admission June 16, 2018 at 17:55 Date of Discharge 06/19/18 Attending Physician: JANA WAKEFIELD MD Discharge Summary PROCEDURES PERFORMED DURING STAY: [None]. ADMITTING DIAGNOSES: 1. [COPD]. DISCHARGE DIAGNOSES: 1. [Exacerbation of COPD]. COMPLICATIONS/CHIEF COMPLAINT: Bronchitis. HISTORY OF PRESENT ILLNESS: . HOSPITAL COURSE: Patient is still hesitant to increase exacerbation of COPD Will change IV to by mouth prednisone to IV Solu-Medrol for better control Continue nebulizer treatment as ordered Extensive counseling was done as patient possibly has CHRISTIAN and needs to follow up with her primary care physician for sleep apnea test Patient has responded very well to IV steroids and possibly will be converted to by mouth on discharge today Pt maintains oxygenation very well on low percentage of oxygen Patient was advised to seek pulmonary consultation in follow-up for sleep apnea studies as an outpatient DISCHARGE MEDICATIONS: Please see below. ALLERGIES: Please see below. PHYSICAL EXAMINATION ON DISCHARGE: VITAL SIGNS: Please see below. GENERAL: [Within normal limits] HEENT: [PERRLA. Extraocular muscles intact] NECK: [Supple, no JVD, no lymphadenopathy] CARDIOVASCULAR EXAMINATION: [S1, S2, regular] RESPIRATORY EXAMINATION: [Clear to a and P, and no abnormal sounds heard] ABDOMINAL EXAMINATION: [Benign] EXTREMITIES: [Negative clubbing, cyanosis anemia] SKIN: [Within normal limits] NEUROLOGICAL EXAMINATION: [Within normal limits] PSYCHIATRIC EXAMINATION: [Within normal limits] LABORATORY DATA: Please see below. IMAGING: [Normal limit] PROGNOSIS: [Good] ACTIVITY: [As tolerated]. DIET: [regular] DISCHARGE PLAN: [Follow-up with PCP and button inspector in 1 week] DISPOSITION: 01 Home, Self-Care. DISCHARGE INSTRUCTIONS: 1. [As above]. ITEMS TO FOLLOWUP ON ON OUTPATIENT: 1. [As above]. DISCHARGE CONDITION: [Stable]. TIME SPENT ON DISCHARGE: Greater than minutes. Vital Signs/I&Os Vital Signs Date Time Temp Pulse Resp B/P (MAP) Pulse Ox O2 Delivery O2 Flow Rate FiO2 06/19/18 09:00 2.0 06/19/18 06:00 97.8 66 18 137/72 (93) 92 06/16/18 22:25 Room Air I&O- Last 24 Hours up to 6 AM0 06/19/18 06:00 Intake Total 1790 ml Output Total 1650 ml Balance 140 ml Laboratory Data Labs 24H Laboratory Tests 2 06/19/18 05:56: Nucleated Red Blood Cells % (auto) 0.0 CBC/BMP Laboratory Tests 06/19/18 05:56 Red Blood Count 5.21, Mean Corpuscular Volume 92.3, Mean Corpuscular Hemoglobin 31.1, Mean Corpuscular Hemoglobin Concent 33.7, Red Cell Distribution Width 12.8 Microbiology Microbiology 06/16/18 Blood Culture - Preliminary, Resulted No Growth after 48 hours. All Specime... 06/16/18 Blood Culture - Preliminary, Resulted No Growth after 48 hours. All Specime... Discharge Medications Scheduled Alprazolam (Alprazolam) 2 Mg Tab, 2 MG PO QID, (Reported) Citalopram Hydrobromide (Celexa) 40 Mg Tablet, 20 MG PO DAILY, (Reported) Fentanyl (Duragesic) 50 Mcg Patch.td72, 50 MCG TD Q72H, (Reported) USUALLY APPLIES TO BACK/SHOULDERS Prednisone (Prednisone) 20 Mg Tablet, 20 MG PO DAILY Ropinirole HCl (Ropinirole HCl) 1 Mg Tablet, 1 MG PO QHS, (Reported) Topiramate (Topiramate) 100 Mg Tablet, 100 MG PO BID, (Reported) Scheduled PRN Albuterol Sulfate (Ventolin Hfa) 18 Gm Hfa.aer.ad, 2 PUFF INH Q4H PRN for SHORTNESS OF BREATH, (Reported) Hydrocodone/Acetaminophen (Hydrocodone-Acetamin 10-325 mg) 1 Each Tablet, 1 TAB PO BID PRN for PAIN, (Reported) FILLED AT PHARMACY. PATIENT HAS NOT STARTED YET. Melatonin (Melatonin) 5 Mg Capsule, 5 MG PO QHS PRN for SLEEP, (Reported) Tizanidine HCl (Tizanidine HCl) 4 Mg Tablet, 4 MG PO Q6H PRN for PAIN, (Reported) Allergies Coded Allergies: tapentadol (Verified Allergy, Severe, SHORTNESS OF BREATH, 06/16/18) Corticosteroids (Glucocorticoids) (Verified Adverse Reaction, Intermediate, IMPAIRED IMMUNE SYSTEM, 06/16/18) erythromycin base (Verified Adverse Reaction, Intermediate, NAUSEA, 06/16/18) JANA WAKEFIELD MD June 19, 2018 13:42
== END 2018-06-19 12:19 | disposition home or self-care (01) ==
LOC: M ED 17:54 → M ED INP 17:55 → M MSPAV 22:36
PROVIDERS: ADMIT Internal Medicine; ATTEND Internal Medicine
DX: J44.1 Chronic obstructive pulmonary disease with (acute) exacerbation (principal); E66.9 Obesity, unspecified; G47.9 Sleep disorder, unspecified; R55 Syncope and collapse; R06.02 Shortness of breath; R07.9 Chest pain, unspecified; E87.6 Hypokalemia; F17.210 Nicotine dependence, cigarettes, uncomplicated; R50.9 Fever, unspecified; J45.909 Unspecified asthma, uncomplicated; Z79.899 Other long term (current) drug therapy; Z79.52 Long term (current) use of systemic steroids; Z88.1 Allergy status to other antibiotic agents; Z88.8 Allergy status to other drugs, medicaments and biological substances; Z88.5 Allergy status to narcotic agent; Z80.1 Family history of malignant neoplasm of trachea, bronchus and lung; Z82.49 Family history of ischemic heart disease and other diseases of the circulatory system; Z83.3 Family history of diabetes mellitus
CPT/HCPCS: 36415; 71045; 80048; 80076; 82550; 82553; 82803; 83605; 83880; 84443; 84484; 85025; 85027; 85610; 87040; 87502; 93005; 93041; 93306; 94640; 96372; 96374; 96375; 96376; 97161; 99285; G0378; J1100; J1650; J2930

== ENCOUNTER → 2019-10-15 | Outpatient (CLI) | payer MEDICARE, OTHER ==
[~2019-10-15] MED LIST changes: +CELE40TA PO; +DURA50DI2 TD; +HYDR-4517 PO; +MELA5CAP2 PO; -OMEP40CA2 PO; +OMEP40CA97 PO; +PRED20TA PO; +ROPI1TAB3 PO; +TIZA4TAB4 PO; +TOPI100T9 PO; +VENTAER INH
--- NOTE | 2019-11-11 11:20 | REP ---
CHEST X-RAY CLINICAL: History of chronic obstructive pulmonary disease. TECHNIQUE: PA and lateral. COMPARISON: 01/22/2018. FINDINGS: The cardiac silhouette is normal. There is slight increased prominence to the bilateral ryan, which may be secondary to prominent pulmonary vasculature, although adenopathy cannot be excluded. The lung mock are clear and without consolidation, effusion, or pneumothorax. Skeletal structures are intact. IMPRESSION: Chronic stable changes. Cannot exclude subtle hilar adenopathy. Consider contrast enhanced chest CT for further evaluation. MTDD
== END ==
LOC: M LAB 12:45 → M RAD 12:45
PROVIDERS: ATTEND Internal Medicine Pulmonary Disease
DX: J44.9 Chronic obstructive pulmonary disease, unspecified (principal)

== ENCOUNTER → 2019-12-17 | Outpatient (CLI) | payer MEDICARE ==
[2019-12-17 15:11] LABS: BLOOD UREA NITROGEN 19 MG/DL (7-18); CREATININE FOR GFR 0.81 MG/DL (0.55-1.30); GLOMERULAR FILTRATION RATE > 60.0 (>58)
== END ==
LOC: M LAB 14:03
PROVIDERS: ATTEND Internal Medicine Pulmonary Disease
DX: R91.8 Other nonspecific abnormal finding of lung field (principal)

== ENCOUNTER → 2019-12-21 | Outpatient (CLI) | payer MEDICARE ==
[~2019-12-21] MED LIST changes: +ISOVUE-370 76% 100ML VIAL As Ordered ONE
--- NOTE | 2019-12-21 16:48 | REP ---
INDICATION: OTHER NON SPECIFIC ABNORMAL FINDING OF LUNG FIELD. COMPARISON: Chest 10/15/2019, 01/22/2018 TECHNIQUE: Bolus of 75 mL Isovue 370 scanning through the chest with coronal and sagittal reconstructions. FINDINGS: Some fibro atelectatic change in the superior lingular segment of the left upper lobe anteriorly as well as the inferior lingular segment. No definite parenchymal mass, nodule, effusion or acute infiltrate on the left. The right lung shows no infiltrate or effusion. There is no pulmonary nodule I see no calcified pleural plaque in either side. No apical pleural scarring. Heart is not enlarged there is no pericardial thickening or effusion. The main, right, left and lobar pulmonary arteries are without filling defects the right and left pulmonary arteries are prominent particularly the left at the hilum without hilar, mediastinal, axillary or supraclavicular adenopathy. No hiatal hernia. The bone windows show sternum, manubrium, clavicles, scapula, humeral heads and ribs without gross abnormality spine was intact. Upper abdominal structures are not seen in their entirety with those segments of the liver, spleen, adrenal glands, gallbladder pancreas and upper poles kidneys were grossly intact. IMPRESSION: Some scarring in the lingula anteriorly in both upper and lower segments without pleural effusion, acute infiltrate or definite pulmonary nodule. No calcified pleural plaque pleural effusion mediastinal or hilar adenopathy The pulmonary arteries show prominence centrally at the ryan left greater than right there is no hilar adenopathy and this appearance accounts for the finding on chest x-ray it is stable compared to a chest x-ray in 2018. Bones and upper abdominal structures unremarkable. Nothing acute. <Electronically signed by Perico Murillo > 12/21/19 [id number]
== END ==
LOC: M RAD 13:42
PROVIDERS: ATTEND Internal Medicine Pulmonary Disease
DX: R91.8 Other nonspecific abnormal finding of lung field (principal)
CPT/HCPCS: 71260; Q9967

== ENCOUNTER → 2020-10-21 | Outpatient (CLI) | payer MEDICARE, MEDICAID ==
[~2020-10-21] MED LIST changes: -ISOVUE-370 76% 100ML VIAL As Ordered ONE; +OMEP40CA4 PO; -OMEP40CA97 PO
--- NOTE | 2020-10-24 13:16 | REPVR ---
PROCEDURE INFORMATION: Exam: MR Lumbar Spine Without Contrast Exam date and time: 10/21/2020 3:06 PM Age: 50 years old Clinical indication: Low back pain; Additional info: Lumbar radiculopathy TECHNIQUE: Imaging protocol: Multiplanar magnetic resonance images of the lumbar spine without intravenous contrast. COMPARISON: MRI-Spine, L.S. without con 11/22/2017 3:26 PM FINDINGS: Vertebrae: There is symmetric sacralization of L5. Modic type 2 signal changes seen at the narrow L5-S1 disc space. Spinal cord: The conus medullaris is normal. L1-L2: No significant disc disease. No significant spinal canal stenosis. No neural foraminal stenosis. L2-L3: No significant disc disease. No significant spinal canal stenosis. No neural foraminal stenosis. L3-L4: No significant disc disease. No significant spinal canal stenosis. No neural foraminal stenosis. L4-L5: The L4-L5 level shows no evidence of a significant posterior disc herniation. There is mild right and moderate left facet arthropathy. There is no nerve root compression. L5-S1: The L5-S1 disc space is not included on the axial images on this examination but has been previously evaluated. There appears to be a left laminectomy on the study of 11/22/2017. There is no evidence of nerve compression on the sagittal images of the current exam. Soft tissues: The included paraspinal soft tissues appear normal. Gallbladder and bile ducts: Several gallstones are observed not included on previous studies. There is no evidence of gallbladder wall thickening. The common bile duct is dilated at 1 cm without an obvious distal stone. IMPRESSION: 1. Several gallstones are observed not included on previous studies. There is no evidence of gallbladder wall thickening. The common bile duct is dilated at 1 cm without an obvious distal stone. 2. The L4-L5 level shows no evidence of a significant posterior disc herniation. There is mild right and moderate left facet arthropathy. There is no nerve root compression. 3. There is symmetric sacralization of L5. Modic type 2 signal changes seen at the narrow L5-S1 disc space. 4. The L5-S1 disc space is not included on the axial images on this examination but has been previously evaluated. There appears to be a left laminectomy on the study of 11/22/2017. There is no evidence of nerve compression on the sagittal images of the current exam. Electronically signed by: Torsten Barajas On 10/24/2020 13:15:50 PM
== END ==
LOC: M PLARAD 13:13
PROVIDERS: ATTEND Nurse Practitioner Family
DX: M54.16 Radiculopathy, lumbar region (principal); K80.20 Calculus of gallbladder without cholecystitis without obstruction

== ENCOUNTER → 2021-02-28 | Outpatient (CLI) | payer MEDICARE, MEDICAID ==
[~2021-02-28] MED LIST changes: +TIZA10TA PO; -TIZA4TAB4 PO
== END ==
LOC: M RAD 13:05
PROVIDERS: ATTEND Internal Medicine Pulmonary Disease
DX: F17.218 Nicotine dependence, cigarettes, with other nicotine-induced disorders (principal); R91.1 Solitary pulmonary nodule

== ENCOUNTER → 2021-09-08 | Outpatient (CLI) | payer MEDICARE, MEDICAID | LOC: M PLAIMG 14:21 | PROVIDERS: ATTEND Physician Assistant | DX: R91.8 Other nonspecific abnormal finding of lung field (principal) ==

== ENCOUNTER 2022-07-26 10:58 | Emergency (ER) | payer MEDICARE, MEDICAID ==
[~2022-07-26] VITALS: Ht 172.7 cm; Wt 84.1 kg
[2022-07-26 11:45] LABS: VENOUS BASE EXCESS -1.2 (-2.0-2.0); VENOUS HCO3 22.5 MMOL/L (23.0-27.0); VENOUS O2 SATURATION 97.2 % (60.0-80.0); VENOUS PARTIAL PRESSURE CO2 35.3 mmHg (38.0-50.0); VENOUS PARTIAL PRESSURE O2 93.4 mmHg (30.0-50.0); VENOUS PH 7.422 UNITS (7.330-7.430); VENOUS STANDARD HCO3 23.5 MMOL/L; VENOUS TOTAL CO2 23.6 MMOL/L (24.0-28.0)
[2022-07-26 12:01] LABS: BASO % 0.4 % (0.0-1.0); HEMATOCRIT 48.8 % (36.0-47.0); HEMOGLOBIN 17.1 g/dl (12.0-15.5); LYMPH # 1.8 10^3/uL (1.5-5.0); LYMPH % 25.4 % (24.0-44.0); MEAN CORPUSCULAR HEMOGLOBIN 31.7 pg (27.0-33.0); MEAN CORPUSCULAR VOLUME 90.5 fl (80.0-96.0); MONO # 0.1 10^3/uL (0.0-0.8); MONO % 1.8 % (2.0-8.0); NEUTROPHILS # 5.1 10^3/uL (1.5-8.5); PLATELET COUNT, AUTOMATED 183 10^3/uL (150-450); RED BLOOD COUNT 5.39 10^6/uL (4.00-5.40); WHITE BLOOD COUNT 7.1 10^3/uL (4.0-10.0)
[2022-07-26 12:22] LABS: OSMOLALITY SERUM 290 MOSM/KG (275-295)
[2022-07-26 12:23] LABS: ETHYL ALCOHOL (ETHANOL) 0.005 % (0.000-0.010)
[2022-07-26 12:25] LABS: ACETAMINOPHEN LEVEL 12.8 UG/ML (10.0-20.0); ALBUMIN 4.2 G/DL (3.2-5.2); ALKALINE PHOSPHATASE 140 U/L (46-116); ALT/SGPT 43 U/L (7.0-40); AST/SGOT 29 U/L (<34); BILIRUBIN,DIRECT < 0.1 MG/DL (<0.4); BILIRUBIN,TOTAL 0.3 MG/DL (0.3-1.2); BLOOD UREA NITROGEN 10 MG/DL (9-23); CALCIUM LEVEL 8.7 MG/DL (8.5-10.1); CARBON DIOXIDE LEVEL 23 MMOL/L (20-31); CHLORIDE LEVEL 107 MMOL/L (98-107); GLOMERULAR FILTRATION RATE > 60.0 (>51); GLUCOSE, FASTING 112 MG/DL (60-100); POTASSIUM SERUM 4.8 MMOL/L (3.5-5.1); SALICYLATE LEVEL < 3.0 MG/DL (<30); SODIUM LEVEL 138 MMOL/L (136-145); TOTAL PROTEIN 7.1 G/DL (5.7-8.2)
[2022-07-26 12:27] LABS: THYROID STIMULATING HORMONE 0.694 uIU/ML (0.55-4.78)
[2022-07-26 12:35] VITALS: BP 161/94
[2022-07-26 12:35] LABS: CPK CREATINE PHOSPHOKINASE 45 U/L (34-145)
[2022-07-26] MEDS ORDERED: PROMETHAZINE 25MG/ML 1ML VIAL IV ONE (13:40)
[2022-07-26 16:30] VITALS: O2SAT 95
[2022-07-26 16:31] VITALS: BP 148/98; TEMP 98
== END 2022-07-26 16:53 | disposition home or self-care (01) ==
LOC: M ED 10:58
DX: F11.23 Opioid dependence with withdrawal (principal); J44.9 Chronic obstructive pulmonary disease, unspecified; F17.200 Nicotine dependence, unspecified, uncomplicated; Z88.8 Allergy status to other drugs, medicaments and biological substances; Z88.1 Allergy status to other antibiotic agents; Z79.52 Long term (current) use of systemic steroids; Z79.899 Other long term (current) drug therapy
CPT/HCPCS: 70450; 80048; 80076; 80143; 82077; 82140; 82550; 82803; 83605; 83930; 84443; 85025; 93005; 93041; 94760; 96374; 99285; J2550

== ENCOUNTER → 2022-09-04 | Outpatient (CLI) | payer MEDICARE, MEDICAID ==
[~2022-09-04] MED LIST changes: -ROPI1TAB3 PO; +ROPI1TAB73 PO
[2022-09-04 08:05] LABS: HEMATOCRIT 41.6 % (36.0-47.0); MEAN CORPUSCULAR HEMOGLOBIN 32.2 pg (27.0-33.0); MEAN CORPUSCULAR HGB CONC 33.7 g/dl (32.0-36.5); MEAN CORPUSCULAR VOLUME 95.6 fl (80.0-96.0); PLATELET COUNT, AUTOMATED 176 10^3/uL (150-450); RED BLOOD COUNT 4.35 10^6/uL (4.00-5.40); WHITE BLOOD COUNT 5.5 10^3/uL (4.0-10.0)
[2022-09-04 08:17] LABS: HEMOGLOBIN A1c 5.3 % (4.0-6.0)
[2022-09-04 08:33] LABS: ALBUMIN 3.9 G/DL (3.2-5.2); ALKALINE PHOSPHATASE 98 U/L (46-116); ALT/SGPT 34 U/L (7.0-40); AST/SGOT 20 U/L (<34); BILIRUBIN,TOTAL 0.7 MG/DL (0.3-1.2); BLOOD UREA NITROGEN 17 MG/DL (9-23); CALCIUM LEVEL 8.8 MG/DL (8.5-10.1); CARBON DIOXIDE LEVEL 26 MMOL/L (20-31); CHLORIDE LEVEL 108 MMOL/L (98-107); CHOLESTEROL LEVEL 221 MG/DL (<200); CHOLESTEROL RISK RATIO 5.42 (<5); CREATININE FOR GFR 0.61 MG/DL (0.55-1.30); GLOMERULAR FILTRATION RATE > 60.0 (>51); GLUCOSE, FASTING 93 MG/DL (60-100); HDL CHOLESTEROL 40.7 MG/DL (>40); LDL CHOLESTEROL 138.3 MG/DL (<100); NON-HDL-C 180.3 MG/DL; SODIUM LEVEL 141 MMOL/L (136-145); TOTAL PROTEIN 6.8 G/DL (5.7-8.2); TRIGLYCERIDES LEVEL 210 MG/DL (<150)
[2022-09-04 08:35] LABS: THYROID STIMULATING HORMONE 0.536 uIU/ML (0.55-4.78)
== END ==
LOC: M RAD 06:48
PROVIDERS: ATTEND Family Medicine
DX: R10.9 Unspecified abdominal pain (principal); K80.20 Calculus of gallbladder without cholecystitis without obstruction

== ENCOUNTER → 2022-10-20 | Outpatient (CLI) | payer OTHER, MEDICAID ==
[2022-10-20 10:03] LABS: HEMATOCRIT 47.8 % (36.0-47.0); HEMOGLOBIN 15.6 g/dl (12.0-15.5); MEAN CORPUSCULAR HEMOGLOBIN 33.1 pg (27.0-33.0); MEAN CORPUSCULAR HGB CONC 32.6 g/dl (32.0-36.5); MEAN CORPUSCULAR VOLUME 101.5 fl (80.0-96.0); PLATELET COUNT, AUTOMATED 180 10^3/uL (150-450); RED BLOOD COUNT 4.71 10^6/uL (4.00-5.40); WHITE BLOOD COUNT 5.3 10^3/uL (4.0-10.0)
[2022-10-20 10:16] LABS: INR 0.92; PROTHROMBIN TIME 12.1 SECONDS (12.5-14.5)
[2022-10-20 10:25] LABS: HEMOGLOBIN A1c 4.7 % (4.0-6.0)
[2022-10-20 10:50] LABS: ALBUMIN 3.9 G/DL (3.2-5.2); ALKALINE PHOSPHATASE 143 U/L (46-116); ALT/SGPT 29 U/L (7.0-40); AST/SGOT 20 U/L (<34); BILIRUBIN,TOTAL 0.5 MG/DL (0.3-1.2); BLOOD UREA NITROGEN 17 MG/DL (9-23); CALCIUM LEVEL 9.6 MG/DL (8.5-10.1); CARBON DIOXIDE LEVEL 32 MMOL/L (20-31); CHLORIDE LEVEL 102 MMOL/L (98-107); CHOLESTEROL LEVEL 270 MG/DL (<200); CHOLESTEROL RISK RATIO 4.21 (<5); CREATININE FOR GFR 0.67 MG/DL (0.55-1.30); GLOMERULAR FILTRATION RATE > 60.0 (>51); GLUCOSE, FASTING 93 MG/DL (60-100); LDL CHOLESTEROL 158.8 MG/DL (<100); POTASSIUM SERUM 4.8 MMOL/L (3.5-5.1); SODIUM LEVEL 139 MMOL/L (136-145); TOTAL 25(OH) VITAMIN D 11.4 NG/ML (20.0-100.0); TOTAL PROTEIN 7.5 G/DL (5.7-8.2); TRIGLYCERIDES LEVEL 236 MG/DL (<150)
[2022-10-20 10:52] LABS: THYROID STIMULATING HORMONE 1.499 uIU/ML (0.55-4.78)
== END ==
LOC: M RAD 08:19
PROVIDERS: ATTEND Family Medicine
DX: I10 Essential (primary) hypertension (principal); J44.9 Chronic obstructive pulmonary disease, unspecified; Z79.899 Other long term (current) drug therapy

== ENCOUNTER → 2023-01-16 | Outpatient (CLI) | payer OTHER, MEDICAID ==
[~2023-01-16] MED LIST changes: +ALPR1TAB3 PO; +ANOR1AER INH; +ARNU1INH3 INH; +ERGO500029 PO; +FLUO40CA PO; +LEVO100T5 PO; +NICO21DI38 TOP; +OMEP-173 PO; +PRAV40TA2 PO; +PREG150C2 PO; +STIO1AER
== END ==
LOC: M RAD 10:03
PROVIDERS: ATTEND Family Medicine
DX: J44.9 Chronic obstructive pulmonary disease, unspecified (principal)

== ENCOUNTER 2023-03-02 07:40 | Emergency (ER) | payer OTHER, MEDICAID ==
[~2023-03-02] VITALS: Ht 175.3 cm; Wt 91.4 kg
[2023-03-02] MEDS ORDERED: PANT40TA29 (07:52)
[2023-03-02] MEDS ORDERED: NORCO, ANEXSIA 5/325MG TABLET (HYDROcodone/ACETAMINOPHEN) PO ONE (10:10)
[2023-03-02] MEDS ORDERED: NAPR-837 PO (10:14)
[2023-03-02] MEDS ORDERED: HYDR-3713 PO (10:14)
[2023-03-02 10:48] VITALS: BP 140/84; TEMP 97; O2SAT 97
== END 2023-03-02 10:51 | disposition home or self-care (01) ==
LOC: M ED 07:40
DX: S70.01XA Contusion of right hip, initial encounter (principal); S83.91XA Sprain of unspecified site of right knee, initial encounter; M23.91 Unspecified internal derangement of right knee; W01.10XA Fall on same level from slipping, tripping and stumbling with subsequent striking against unspecified object, initial encounter; Y92.009 Unspecified place in unspecified non-institutional (private) residence as the place of occurrence of the external cause; Y93.9 Activity, unspecified; Z79.51 Long term (current) use of inhaled steroids; Z79.899 Other long term (current) drug therapy; Y99.8 Other external cause status

== ENCOUNTER → 2023-03-22 | Outpatient (CLI) | payer OTHER, MEDICAID ==
[~2023-03-22] MED LIST changes: +HYDR-3713 PO; +NAPR-837 PO; +PANT40TA29
== END ==
LOC: M PLARAD 07:54
PROVIDERS: ATTEND Physician Assistant
DX: S83.281A Other tear of lateral meniscus, current injury, right knee, initial encounter (principal)

== ENCOUNTER → 2023-05-03 | Outpatient (CLI) | payer OTHER, MEDICAID | LOC: M RAD 12:35 | PROVIDERS: ATTEND Internal Medicine Pulmonary Disease | DX: R91.1 Solitary pulmonary nodule (principal) ==

== ENCOUNTER → 2023-06-21 | Outpatient (CLI) | payer OTHER, MEDICAID ==
[2023-06-21 10:47] LABS: HEMATOCRIT 46.1 % (36.0-47.0); MEAN CORPUSCULAR HGB CONC 34.7 g/dl (32.0-36.5); MEAN CORPUSCULAR VOLUME 92.2 fl (80.0-96.0); PLATELET COUNT, AUTOMATED 177 10^3/uL (150-450); WHITE BLOOD COUNT 5.5 10^3/uL (4.0-10.0)
[2023-06-21 11:00] LABS: HEMOGLOBIN A1c 5.2 % (4.0-6.0)
[2023-06-21 11:14] LABS: IRON (FE) 108 UG/DL (50-170); PERCENT SATURATION 31.4 % (13.2-45.0); TOTAL IRON BINDING CAPACITY 344 UG/DL (250-425)
[2023-06-21 11:15] LABS: ALBUMIN 3.9 G/DL (3.2-5.2); ALKALINE PHOSPHATASE 154 U/L (46-116); ALT/SGPT 54 U/L (7.0-40); AST/SGOT 21 U/L (<34); BILIRUBIN,TOTAL 0.5 MG/DL (0.3-1.2); BLOOD UREA NITROGEN 14 MG/DL (9-23); CALCIUM LEVEL 9.4 MG/DL (8.5-10.1); CARBON DIOXIDE LEVEL 24 MMOL/L (20-31); CHLORIDE LEVEL 104 MMOL/L (98-107); CHOLESTEROL LEVEL 243 MG/DL (<200); CHOLESTEROL RISK RATIO 5.61 (<5); CREATININE FOR GFR 0.62 MG/DL (0.55-1.30); GLOMERULAR FILTRATION RATE > 60.0 (>51); GLUCOSE, FASTING 174 MG/DL (60-100); HDL CHOLESTEROL 43.3 MG/DL (>40); NON-HDL-C 199.7 MG/DL; SODIUM LEVEL 135 MMOL/L (136-145); TOTAL PROTEIN 7.3 G/DL (5.7-8.2); TRIGLYCERIDES LEVEL 552 MG/DL (<150)
[2023-06-21 11:17] LABS: THYROID STIMULATING HORMONE 1.984 uIU/ML (0.55-4.78); TOTAL 25(OH) VITAMIN D 10.7 NG/ML (20.0-100.0)
== END ==
LOC: M LAB 09:54
PROVIDERS: ATTEND Family Medicine
DX: I10 Essential (primary) hypertension (principal); R53.83 Other fatigue; Z86.39 Personal history of other endocrine, nutritional and metabolic disease; Z79.899 Other long term (current) drug therapy

== ENCOUNTER → 2023-11-29 | Outpatient (CLI) | payer OTHER, MEDICAID ==
[~2023-11-29] MED LIST changes: +E-Z-GAS II EFFERVESCENT PACKET (SODIUM BICARB./CITRIC ACID/SIMETHICONE) As Ordered ONE; +E-Z-HD 98% w/w 340GM SUSP BTL As Ordered ONE; +E-Z-PAQUE 96% w/w SUSP 176GM BTL As Ordered ONE
== END ==
LOC: M RAD 08:03
PROVIDERS: ATTEND Family Medicine
DX: K57.10 Diverticulosis of small intestine without perforation or abscess without bleeding (principal); K27.9 Peptic ulcer, site unspecified, unspecified as acute or chronic, without hemorrhage or perforation

== ENCOUNTER → 2024-01-19 | Outpatient (CLI) | payer OTHER, MEDICAID ==
[~2024-01-19] MED LIST changes: -E-Z-GAS II EFFERVESCENT PACKET (SODIUM BICARB./CITRIC ACID/SIMETHICONE) As Ordered ONE; -E-Z-HD 98% w/w 340GM SUSP BTL As Ordered ONE; -E-Z-PAQUE 96% w/w SUSP 176GM BTL As Ordered ONE
== END ==
LOC: M RAD 11:42
PROVIDERS: ATTEND Family Medicine
DX: J40 Bronchitis, not specified as acute or chronic (principal)

== ENCOUNTER → 2024-03-25 | Outpatient (CLI) | payer MEDICARE, MEDICAID ==
[2024-03-25 11:25] LABS: HEMATOCRIT 46.5 % (36.0-47.0); HEMOGLOBIN 15.3 g/dl (12.0-15.5); MEAN CORPUSCULAR HEMOGLOBIN 30.8 pg (27.0-33.0); MEAN CORPUSCULAR HGB CONC 32.9 g/dl (32.0-36.5); MEAN CORPUSCULAR VOLUME 93.6 fl (80.0-96.0); PLATELET COUNT, AUTOMATED 228 10^3/uL (150-450); RED BLOOD COUNT 4.97 10^6/uL (4.00-5.40); WHITE BLOOD COUNT 7.7 10^3/uL (4.0-10.0)
[2024-03-25 12:01] LABS: ALBUMIN 3.9 G/DL (3.2-5.2); ALKALINE PHOSPHATASE 120 U/L (35-104); ALT/SGPT 51 U/L (7.0-40); AST/SGOT 24 U/L (<34); BILIRUBIN,TOTAL 0.3 MG/DL (0.3-1.2); BLOOD UREA NITROGEN 16 MG/DL (9-23); CALCIUM LEVEL 9.4 MG/DL (8.5-10.1); CARBON DIOXIDE LEVEL 30 MMOL/L (20-31); CHLORIDE LEVEL 104 MMOL/L (98-107); CHOLESTEROL LEVEL 214 MG/DL (<200); CHOLESTEROL RISK RATIO 3.93 (<5); CREATININE FOR GFR 0.71 MG/DL (0.55-1.30); GLOMERULAR FILTRATION RATE > 60.0 (>51); GLUCOSE, FASTING 93 MG/DL (60-100); HDL CHOLESTEROL 54.4 MG/DL (>40); NON-HDL-C 159.6 MG/DL; POTASSIUM SERUM 4.2 MMOL/L (3.5-5.1); SODIUM LEVEL 141 MMOL/L (136-145); TOTAL PROTEIN 7.4 G/DL (5.7-8.2); TRIGLYCERIDES LEVEL 388 MG/DL (<150)
[2024-03-25 12:04] LABS: THYROID STIMULATING HORMONE 1.386 uIU/ML (0.55-4.78); TOTAL 25(OH) VITAMIN D 29.4 NG/ML (20.0-100.0)
== END ==
LOC: M RAD 09:23
PROVIDERS: ATTEND Family Medicine
DX: J44.9 Chronic obstructive pulmonary disease, unspecified (principal); I10 Essential (primary) hypertension; R53.83 Other fatigue; Z79.899 Other long term (current) drug therapy

== ENCOUNTER → 2024-05-27 | Outpatient (CLI) | payer MEDICARE, MEDICAID | LOC: M RAD 09:25 | PROVIDERS: ATTEND Internal Medicine Pulmonary Disease | DX: R91.8 Other nonspecific abnormal finding of lung field (principal); F17.218 Nicotine dependence, cigarettes, with other nicotine-induced disorders ==

== ENCOUNTER 2024-08-15 09:18 | Emergency (ER) | payer MEDICARE, MEDICAID ==
[~2024-08-15] VITALS: Ht 175.3 cm; Wt 109.0 kg
[~2024-08-15 09:18] MED LIST changes: -PANT40TA29; +PANT40TA29 PO; -PRAV40TA2 PO; +PRAV40TA85 PO; +TOPI-257 PO; -TOPI100T9 PO
[2024-08-15 09:24] VITALS: TEMP 97
[2024-08-15] MEDS ORDERED: TRIA37.5 PO (09:28)
[2024-08-15] MEDS ORDERED: PHEN37.511 PO (09:28)
[2024-08-15] MEDS ORDERED: FLUO-365 PO (09:51)
[2024-08-15 09:55] LABS: BASO # 0.0 10^3/uL (0.0-0.2); BASO % 0.4 % (0.0-1.0); EOS # 0.1 10^3/uL (0.0-0.5); EOS % 0.6 % (0.0-3.0); LYMPH # 3.1 10^3/uL (1.5-5.0); LYMPH % 39.3 % (24.0-44.0); MONO # 0.4 10^3/uL (0.0-0.8); MONO % 4.7 % (2.0-8.0); NEUTROPHILS # 4.3 10^3/uL (1.5-8.5); NEUTROPHILS % 54.5 % (36.0-66.0); PLATELET COUNT, AUTOMATED 223 10^3/uL (150-450)
[2024-08-15 10:20] LABS: ALT/SGPT 70 U/L (7.0-40); AST/SGOT 45 U/L (<34); CK-MB VALUE MASS 1.9 NG/ML (<3.6)
[2024-08-15 10:27] LABS: CPK CREATINE PHOSPHOKINASE 74 U/L (34-145); MB/CK RELATIVE INDEX 2.56 (< OR =4)
[2024-08-15] MEDS ORDERED: ISOVUE-370 76% 100 ML VIAL As Ordered ONE (10:39)
[2024-08-15] MEDS: NS (Normal Saline) 0.9% 1,000 ML IV ONE (10:48)
[2024-08-15] MEDS: MORPHINE 4 MG/ML 1 ML VIAL IV ONE (10:49)
[2024-08-15] MEDS: ONDANSETRON 4MG 2ML VIAL IV ONE (10:49)
[2024-08-15 11:22] LABS: C REACTIVE PROTEIN QUANTITATIV 1.20 MG/DL (<1.0)
[2024-08-15] MEDS: MAALOX 30 ML SUSP *UDC PO ONE (12:54)
[2024-08-15] MEDS: LIDOCAINE VISCOUS 2% SOLN 15 ML UDC PO ONE (12:54)
[2024-08-15] MEDS: DICYCLOMINE 10 MG CAP PO ONE (12:55)
[2024-08-15] MEDS ORDERED: ALBU2.5V10 NEB (13:27)
[2024-08-15] MEDS ORDERED: BUDE10.7 INH (13:27)
[2024-08-15] MEDS ORDERED: HOME MED LIST COMPLETE! XX SCH (13:30)
[2024-08-15 13:45] VITALS: BP 122/95; O2SAT 94
[2024-08-15] MEDS ORDERED: SUCR1SS PO (13:58)
[2024-08-15] MEDS ORDERED: DICY-61 PO (13:58)
== END 2024-08-15 14:24 | disposition home or self-care (01) ==
LOC: M ED 09:18
DX: R10.9 Unspecified abdominal pain (principal); R19.7 Diarrhea, unspecified; I25.2 Old myocardial infarction; I50.22 Chronic systolic (congestive) heart failure; K21.9 Gastro-esophageal reflux disease without esophagitis; F43.10 Post-traumatic stress disorder, unspecified; F17.210 Nicotine dependence, cigarettes, uncomplicated; F41.9 Anxiety disorder, unspecified; Z85.41 Personal history of malignant neoplasm of cervix uteri; Z79.51 Long term (current) use of inhaled steroids; Z79.899 Other long term (current) drug therapy
CPT/HCPCS: 74177; 80047; 80076; 82550; 82553; 83605; 83690; 84484; 85025; 86140; 93005; 93041; 96361; 96374; 99285; J2405; Q9967

== ENCOUNTER → 2024-08-18 | Outpatient (CLI) | payer MEDICARE, MEDICAID ==
[~2024-08-18] MED LIST changes: +ALBU2.5V10 NEB; +BUDE10.7 INH; +DICY-61 PO; +FLUO-365 PO; +ISOVUE-370 76% 100 ML VIAL As Ordered ONE; +PHEN37.511 PO; +SUCR1SS PO; +TRIA37.5 PO
== END ==
LOC: M RAD 14:18
PROVIDERS: ATTEND Student in an Organized Health Care Education/Training Program
DX: R10.827 Generalized rebound abdominal tenderness (principal)
CPT/HCPCS: 74174; Q9967

== ENCOUNTER 2024-08-24 12:52 | Day surgery (SDC) | payer MEDICARE, MEDICAID ==
[~2024-08-24] VITALS: Ht 175.3 cm; Wt 107.7 kg
[~2024-08-24 12:52] MED LIST changes: -ISOVUE-370 76% 100 ML VIAL As Ordered ONE
[2024-08-24] MEDS ORDERED: LIDOCAINE 2% 100 MG/5 ML SDV (FOR ANES.) As Ordered ONE (14:42)
[2024-08-24 16:21] VITALS: TEMP 98
[2024-08-24 16:37] VITALS: BP 145/88; O2SAT 94
== END 2024-08-24 16:42 | disposition home or self-care (01) ==
LOC: M OPP 12:52
PROVIDERS: ATTEND Internal Medicine Gastroenterology
DX: D12.6 Benign neoplasm of colon, unspecified (principal); K64.0 First degree hemorrhoids; R19.4 Change in bowel habit; K22.89 Other specified disease of esophagus; K21.00 Gastro-esophageal reflux disease with esophagitis, without bleeding; K44.9 Diaphragmatic hernia without obstruction or gangrene; K31.89 Other diseases of stomach and duodenum; R10.13 Epigastric pain; R10.11 Right upper quadrant pain; Z79.899 Other long term (current) drug therapy; J44.9 Chronic obstructive pulmonary disease, unspecified; F17.210 Nicotine dependence, cigarettes, uncomplicated
CPT/HCPCS: 43239; 45385; 88305; J3010

== ENCOUNTER → 2024-09-11 | Outpatient (CLI) | payer MEDICARE, MEDICAID ==
[2024-09-11 15:55] LABS: BASO # 0.0 10^3/uL (0.0-0.2); BASO % 0.4 % (0.0-1.0); EOS # 0.1 10^3/uL (0.0-0.5); EOS % 1.0 % (0.0-3.0); LYMPH # 3.0 10^3/uL (1.5-5.0); LYMPH % 42.4 % (24.0-44.0); MONO # 0.4 10^3/uL (0.0-0.8); MONO % 5.9 % (2.0-8.0); NEUTROPHILS # 3.6 10^3/uL (1.5-8.5); NEUTROPHILS % 50.0 % (36.0-66.0); PLATELET COUNT, AUTOMATED 199 10^3/uL (150-450)
[2024-09-11 16:01] LABS: ALT/SGPT 103 U/L (7.0-40); AST/SGOT 61 U/L (<34); CALCIUM LEVEL 10.0 MG/DL (8.5-10.1); CARBON DIOXIDE LEVEL 29 MMOL/L (20-31); CHLORIDE LEVEL 98 MMOL/L (98-107); CHOLESTEROL LEVEL 226 MG/DL (<200); CHOLESTEROL RISK RATIO 5.28 (<5); CREATININE FOR GFR 0.84 MG/DL (0.55-1.30); GLOMERULAR FILTRATION RATE 83.0 (>51); NON-HDL-C 183.2 MG/DL; POTASSIUM SERUM 4.3 MMOL/L (3.5-5.1); SODIUM LEVEL 140 MMOL/L (136-145); TRIGLYCERIDES LEVEL 526 MG/DL (<150)
[2024-09-11 16:14] LABS: ESTIMATED AVERAGE GLUCOSE 114.0 MG/DL (60-110)
[2024-09-11 16:26] LABS: CREATININE, URINE 125.4 MG/DL; MALB URINE SIEMENS 20.0 MG/L; MAU/CREAT RATIO 15.9 MCG/MG (0.0-30.0)
== END ==
LOC: M PLALAB 11:34
PROVIDERS: ATTEND Student in an Organized Health Care Education/Training Program
DX: R16.0 Hepatomegaly, not elsewhere classified (principal); E11.9 Type 2 diabetes mellitus without complications

== ENCOUNTER → 2024-09-22 | Outpatient (CLI) | payer MEDICARE, MEDICAID ==
[2024-09-22 16:31] LABS: ALT/SGPT 121.0 U/L (7.0-40); AST/SGOT 45.0 U/L (<34)
== END ==
LOC: M PLALAB 11:59
PROVIDERS: ATTEND Student in an Organized Health Care Education/Training Program
DX: E78.1 Pure hyperglyceridemia (principal); R74.01 Elevation of levels of liver transaminase levels

== ENCOUNTER → 2024-11-20 | Outpatient (CLI) | payer MEDICARE, MEDICAID | LOC: M RAD 07:37 | PROVIDERS: ATTEND Student in an Organized Health Care Education/Training Program | DX: R14.0 Abdominal distension (gaseous) (principal) | CPT/HCPCS: 78264; A9541 ==